=== PATIENT | male | born 1975 ===

== ENCOUNTER 2016-05-07 17:02 | Emergency (ER) | payer SELFPAY ==
[~2016-05-07 17:02] MED LIST: ALEVE220 M4 PO; ALLEGRA; ALLEGRA180 MG PO; ASPIRIN81 MG PO; BUSPIRONE HCL10 MG PO; CHLORASEPTIC177 ML MM; FLUOXETINE HCL20 MG PO; FLUTICASONE PRO16 GM NS; GUIATUSS AC SY120 ML PO; IBUPROFEN200 M3 PO; KEFLEX500 MG PO; LISINOPRIL10 MG PO; NORCO 5/3251 TAB PO; PENICILLIN V P500 M1 PO; PERCOCET 5-3251 EACH PO; PHENOBARBITAL30 M1 PO; PHENOBARBITAL30 MG PO; STRATTERA40 MG PO; TRAMADOL HCL50 M2 PO
[2016-05-07] MEDS ORDERED: IBUPROFEN800 M1 PO (17:34)
[2016-05-07] MEDS ORDERED: PHENOBARBITAL64.8 M1 PO (17:38)
[2016-05-07] MEDS ORDERED: NORCO 5-325 TA1 EACH PO (18:28)
[2016-10-25] MEDS ORDERED: PHENOBARBITAL60 M1 PO ×2 (05:30→07:26)
[2016-10-25] MEDS ORDERED: NORCO 5-325 TA1 EACH PO (07:25)
[2016-10-25] MEDS ORDERED: ZOFRAN4 M2 PO (07:25)
[2016-10-25] MEDS ORDERED: AUGMENTIN 875-1 EAC2 PO (07:26)
== END 2016-05-07 18:49 ==
LOC: EDMED 17:02
DX: M25.562 Pain in left knee (principal)

== ENCOUNTER 2016-05-29 17:02 | Emergency (ER) | payer SELFPAY ==
[~2016-05-29 17:02] MED LIST changes: +IBUPROFEN800 M1 PO; +NORCO 5-325 TA1 EACH PO; +PHENOBARBITAL64.8 M1 PO
[2016-05-29] MEDS ORDERED: TRAMADOL HCL50 M2 PO (17:54)
[2016-10-25] MEDS ORDERED: PHENOBARBITAL60 M1 PO ×2 (05:30→07:26)
[2016-10-25] MEDS ORDERED: ZOFRAN4 M2 PO (07:25)
[2016-10-25] MEDS ORDERED: NORCO 5-325 TA1 EACH PO (07:25)
[2016-10-25] MEDS ORDERED: AUGMENTIN 875-1 EAC2 PO (07:26)
== END 2016-05-29 18:22 ==
LOC: EDMED 17:02
DX: M25.562 Pain in left knee (principal)

== ENCOUNTER 2016-06-04 21:50 | Emergency (ER) | payer SELFPAY ==
[2016-06-04] MEDS ORDERED: NEURONTIN600 M1 PO (22:17)
[2016-06-04 23:18] LABS: BASO % 0.5 % (0-2); EOS % 4.7 % (0-7); EOSINOPHIL ABSOLUTE COUNT 0.3 tho/cmm (0.0-0.7); HCT-HEMATOCRIT 42.7 % (36.0-53.5); HGB-HEMOGLOBIN 14.8 gm/dl (13.5-17.0); IMMATURE GRANULOCYTES ABSOLUTE 0.02 tho/cmm (0-0.03); IMMATURE GRANULOCYTES PERCENT 0.4 % (0-0.3); LYMPH % 42.9 % (20-45); LYMPH ABSOLUTE COUNT 2.4 tho/cmm (0.8-4.5); MCH (MEAN CORPUSCULAR HGB) 29.9 pg (28.0-32.0); MCHC MEAN CORPUSCULAR HGB CONC 34.7 % (32.0-36.0); MCV (MEAN CELL VOLUME) 86.3 fl (82.0-96.0); MEAN PLATELET VOLUME 11.4 cmc (9.4-12.4); MONO % 7.5 % (0-12); MONOCYTE ABSOLUTE COUNT 0.4 tho/cmm (0.0-1.2); NEUTROPHIL ABSOLUTE COUNT 2.5 tho/cmm (1.6-8.0); NEUTROPHIL-AUTOMATED 2.5 tho/cmm (1.6-8.0); PLATELET COUNT 240 tho/cmm (150-450); RED BLOOD COUNT 4.95 mil/cmm (4.40-5.70); RED CELL DISTRIBUTION WIDTH 13.7 % (12.4-16.4); WHITE BLOOD COUNT 5.6 tho/cmm (4.0-10.0)
[2016-06-04 23:30] LABS: ANION GAP 13 mmol/L (0-20); BLOOD UREA NITROGEN 12 mg/dl (6-24); CALCIUM 8.4 mg/dl (8.5-10.5); CARBON DIOXIDE-VENOUS 23 mmol/L (22-32); CHLORIDE 110 mmol/l (96-110); CREATININE 0.76 mg/dl (0.60-1.30); GLUCOSE 92 mg/dL (70-110); SODIUM 142 mmol/L (135-145); eGFR VALUE FOR BLACK >90 mL/Min
[2016-06-04] MEDS ORDERED: PHENOBARBITAL60 M1 PO (23:42)
[2016-10-25] MEDS ORDERED: PHENOBARBITAL60 M1 PO ×2 (05:30→07:26)
[2016-10-25] MEDS ORDERED: ZOFRAN4 M2 PO (07:25)
[2016-10-25] MEDS ORDERED: NORCO 5-325 TA1 EACH PO (07:25)
[2016-10-25] MEDS ORDERED: AUGMENTIN 875-1 EAC2 PO (07:26)
== END 2016-06-04 23:47 ==
LOC: EDMED 21:50
PROVIDERS: Emergency Medicine
DX: G40.909 Epilepsy, unspecified, not intractable, without status epilepticus (principal); F41.9 Anxiety disorder, unspecified; F90.9 Attention-deficit hyperactivity disorder, unspecified type; Z79.899 Other long term (current) drug therapy

== ENCOUNTER 2016-06-16 12:32 | Emergency (ER) | payer SELFPAY ==
[~2016-06-16 12:32] MED LIST changes: +NEURONTIN600 M1 PO; +PHENOBARBITAL60 M1 PO
[2016-06-16] MEDS ORDERED: PHENOBARBITAL60 M1 PO (13:22)
[2016-06-16] MEDS ORDERED: TRAMADOL HCL50 M2 PO (13:35)
[2016-06-16] MEDS ORDERED: PENICILLIN V P500 M1 PO (13:35)
[2016-10-25] MEDS ORDERED: PHENOBARBITAL60 M1 PO ×2 (05:30→07:26)
[2016-10-25] MEDS ORDERED: ZOFRAN4 M2 PO (07:25)
[2016-10-25] MEDS ORDERED: NORCO 5-325 TA1 EACH PO (07:25)
[2016-10-25] MEDS ORDERED: AUGMENTIN 875-1 EAC2 PO (07:26)
== END 2016-06-16 13:52 ==
LOC: EDMED 12:32
DX: K04.7 Periapical abscess without sinus (principal); F17.210 Nicotine dependence, cigarettes, uncomplicated

== ENCOUNTER 2016-06-28 17:38 | Emergency (ER) | payer SELFPAY ==
[2016-06-28] MEDS ORDERED: IBUPROFEN800 M1 PO (17:43)
[2016-10-25] MEDS ORDERED: PHENOBARBITAL60 M1 PO ×2 (05:30→07:26)
[2016-10-25] MEDS ORDERED: NORCO 5-325 TA1 EACH PO (07:25)
[2016-10-25] MEDS ORDERED: ZOFRAN4 M2 PO (07:25)
[2016-10-25] MEDS ORDERED: AUGMENTIN 875-1 EAC2 PO (07:26)
== END 2016-06-28 19:15 ==
LOC: EDMED 17:38
DX: M25.562 Pain in left knee (principal); Z98.890 Other specified postprocedural states; F17.200 Nicotine dependence, unspecified, uncomplicated

== ENCOUNTER 2016-07-18 14:46 | Emergency (ER) | payer SELFPAY ==
[2016-07-18] MEDS ORDERED: ULTRAM50 M1 PO (16:46)
[2016-10-25] MEDS ORDERED: PHENOBARBITAL60 M1 PO ×2 (05:30→07:26)
[2016-10-25] MEDS ORDERED: NORCO 5-325 TA1 EACH PO (07:25)
[2016-10-25] MEDS ORDERED: ZOFRAN4 M2 PO (07:25)
[2016-10-25] MEDS ORDERED: AUGMENTIN 875-1 EAC2 PO (07:26)
== END 2016-07-18 16:50 ==
LOC: EDMED 14:46
DX: S83.92XA Sprain of unspecified site of left knee, initial encounter (principal); Z98.890 Other specified postprocedural states; F17.210 Nicotine dependence, cigarettes, uncomplicated; W11.XXXA Fall on and from ladder, initial encounter

== ENCOUNTER 2016-08-03 18:18 | Emergency (ER) | payer SELFPAY ==
[~2016-08-03 18:18] MED LIST changes: +ULTRAM50 M1 PO
[2016-10-25] MEDS ORDERED: PHENOBARBITAL60 M1 PO ×2 (05:30→07:26)
[2016-10-25] MEDS ORDERED: ZOFRAN4 M2 PO (07:25)
[2016-10-25] MEDS ORDERED: NORCO 5-325 TA1 EACH PO (07:25)
[2016-10-25] MEDS ORDERED: AUGMENTIN 875-1 EAC2 PO (07:26)
== END 2016-08-03 20:05 ==
LOC: EDMED 18:18
DX: M25.562 Pain in left knee (principal); G40.909 Epilepsy, unspecified, not intractable, without status epilepticus; Z88.6 Allergy status to analgesic agent; Z79.899 Other long term (current) drug therapy; Z98.890 Other specified postprocedural states; F17.210 Nicotine dependence, cigarettes, uncomplicated

== ENCOUNTER 2016-11-07 20:10 | Emergency (ER) | payer SELFPAY ==
[~2016-11-07] VITALS: Ht 175.3 cm; Wt 70.0 kg
[~2016-11-07 20:10] MED LIST changes: +AUGMENTIN 875-1 EAC2 PO; +ZOFRAN4 M2 PO
[2016-11-07 21:17] LABS: URINE BILIRUBIN NEGATIVE (NEG); URINE BLOOD NEGATIVE (NEG); URINE GLUCOSE (UA) NEGATIVE (NEG); URINE KETONE NEGATIVE (NEG); URINE LEUKOCYTE ESTERASE POSITIVE (NEG); URINE NITRITE NEGATIVE (NEG); URINE PROTEIN SMALL (NEG)
[2016-11-07 21:19] LABS: URINE COLOR YELLOW
[2016-11-07 21:20] LABS: URINE APPEARANCE CLOUDY
[2016-11-07 21:25] LABS: URINE EPITHELIAL CELLS 0 /[HPF] (0-10); URINE RBC 0 /[HPF] (0-5); URINE WBC 0-1 /[HPF] (0-5)
== END 2016-11-07 23:05 ==
LOC: EDMED 20:10
PROVIDERS: Physician Assistant
DX: R10.9 Unspecified abdominal pain (principal)
CPT/HCPCS: J7030